=== PATIENT | female | born 1990 | race Caucasian/White ===

== ENCOUNTER 2019-01-08 18:38 | Inpatient (IN) | payer BC ==
[2019-01-08] MEDS ORDERED: OXYTOCIN 10 UNIT/ML 1 ML VIAL IM PRN (19:15)
[2019-01-08] MEDS ORDERED: TERBUTALINE 1 MG/ML VIAL SQ PRN (19:15)
[2019-01-08] MEDS ORDERED: LIDOCAINE 0.5% (PF) 5 MG/ML (50 ML SDV) SQ PRN (19:15)
[2019-01-08] MEDS ORDERED: CARBOPROST TROMETHAMINE 250 MCG/ML 1 ML AMP IM PRN (19:15)
[2019-01-08] MEDS ORDERED: METHYLERGONOVINE 0.2 MG/ML 1 ML AMP IM PRN (19:15)
[2019-01-08] MEDS: LACTATED RINGERS 1,000 ML IV SCH (19:58)
[2019-01-08] MEDS: OXYTOCIN 30 UNITS/500 ML NS 30 UNIT in SALINE 1 500ML.BAG IV SCH (19:59)
[2019-01-08 20:00] VITALS: BMI 29.7
[2019-01-08] MEDS ORDERED: BUTORPHANOL 1 MG/ML 1 ML VIAL IV PRN (20:02)
[2019-01-08 20:33] LABS: Basophils # (A) 0.1 k/uL (0-0.2); Basophils % (A) 1 %; Eosinophils # (A) 0.1 k/uL (0-0.7); Eosinophils % (A) 1 %; HCT 41.7 % (34.0-46.0); HGB 13.8 gm/dL (11.4-16.0); Lymphocytes # (A) 1.9 k/uL (1.0-4.8); Lymphocytes % (A) 19 %; MCH 30.6 pg (25.0-35.0); MCHC 33.1 g/dL (31.0-37.0); MCV 92.3 fL (80.0-100.0); Mean Platelet Volume 8.9; Monocytes # (A) 0.5 k/uL (0-1.0); Monocytes % (A) 5 %; Neutrophils # (A) 7.3 k/uL (1.3-7.7); Neutrophils % (A) 72 %; Platelet Count 174 k/uL (150-450); RBC 4.52 m/uL (3.80-5.40); RDW 14.6 % (11.5-15.5); WBC 10.2 k/uL (3.8-10.6)
[2019-01-08] MEDS ORDERED: fentaNYL (PF) 50 MCG/ML 5 ML AMP ONE (23:45)
[2019-01-08] MEDS ORDERED: SODIUM CHLORIDE 0.9% 100 ML BAG ONE (23:45)
[2019-01-08] MEDS ORDERED: ROPIVACAINE 5MG/ML 20ML VIAL ONE (23:45)
[2019-01-09] MEDS: LACTATED RINGERS 1,000 ML IV SCH ×3 (00:09→21:49)
--- NOTE | 2019-01-09 08:57 | P.HPOB ---
History of Present Illness H&P Date: 01/08/19 Chief Complaint: Rupture of membranes at 37-6/7 weeks' This is a 28-year-old 1 para 0 woman with an estimated due date of 01/23/2019 who presents at 37-6/7 weeks' gestation with the rupture of membranes at approximately the 1715 on 01/08/2019. She notes copious clear fluid. She is having irregular cramping. Her has been essentially unremarkable. She is known blood type O- and did receive Rogaine appropriately. She is rubella immune, group B strep negative, hep Wendy surface antigen negative, gonorrhea and clinic cultures negative, HIV negative. Review of Systems All systems: negative Past Medical History Past Medical History: No Reported History History of Any Multi-Drug Resistant Organisms: None Reported Past Surgical History: No Surgical Hx Reported Past Anesthesia/Blood Transfusion Reactions: No Reported Reaction Past Psychological History: No Psychological Hx Reported Smoking Status: Former smoker Past Alcohol Use History: None Reported Past Drug Use History: None Reported - Past Family History Father Family Medical History: Coronary Artery Disease (CAD) Medications and Allergies Home Medications Medication Instructions Recorded Confirmed Type Pnv,Calcium 72/Iron/Folic Acid 1 each PO DAILY 01/08/19 01/08/19 History [ Plus Tablet] Allergies Allergy/AdvReac Type Severity Reaction Status Date / Time No Known Allergies Allergy Verified 01/08/19 19:35 Exam Vital Signs Temp Pulse Resp BP Pulse Ox 01/08/19 19:15 98.9 F 82 18 130/79 100 01/08/19 19:00 98.9 F 82 18 130/79 100 Intake and Output 01/08/19 01/09/19 01/09/19 22:59 06:59 14:59 Intake Total 700 Balance 700 Intake: IV 400 Lactated Ringers 1,000 ml 400 @ 125 mls/hr IV .Q8H [facility] Rx#:[id number] Oral 300 Other: # Voids 1 Weight 83.915 kg Upon admission from labor and delivery triage her cervix was fingertip dilated, 90% effaced and the vertex was in the -3 station. heart tones are reass uring by external monitoring. Patient was afebrile with normal blood pressures. Rupture of membranes was confirmed. Results Result Diagrams: 01/08/19 19:40 Assessment and Plan (1) Spontaneous rupture of membranes Current Visit: Yes Status: Acute Code(s): HKV6574 - SNOMED Code(s): 973437996 (2) Rh negative, maternal Current Visit: Yes Status: Acute Code(s): O26.899 - OTH RELATED CONDITIONS, UNSPECIFIED TRIMESTER; Z67.91 - UNSPECIFIED BLOOD TYPE, RH NEGATIVE SNOMED Code(s): 287447987 (3) 37 or more weeks gestation of Current Visit: Yes Status: Acute Code(s): WSP6883 - SNOMED Code(s): 04710646 Plan: 28-year-old 1 para 0 woman with spontaneous rupture of membranes not in active labor at 37-6/7 weeks' gestation. She is Rh- and group B strep negative. She will be admitted and undergo Pitocin induction of labor. status is currently reassuring by external monitoring.
--- NOTE | 2019-01-09 08:59 | P.PROBDLV ---
Vaginal Delivery Note - . Vaginal Delivery Note: Findings: Female in the vertex occiput anterior position with Apgars of 7 at 1 minute and 8 at 5 minutes weighing 7 lbs. 3 oz., 3205 g. Intact perineum. Intact, three-vessel cord placenta. EBL 150 mL's. Delivery summary: This is a 28-year-old 1 para 0 woman who presented with spontaneous rupture of fluids at 1715 on 01/08/2019. She was not in active labor. On admission rupture membranes was confirmed however her cervix was not dilated. She therefore underwent Pitocin induction of labor. She eventually received an epidural anesthetic and reached complete cervical dilation by 07 28 on 01/09/2019. She had an approximately 1 hour second stage of labor. heart tones were reassuring throughout the second stage of labor. With she was repositioned, prepped and draped in the modified [place] position. With additional maternal effort the head delivered from the direct occiput anterior position. Arrested 2 did 2 right occiput anterior. The anterior followed by the posterior shoulders were delivered without difficulty. The rest the was delivered onto the field. The nose and mouth were bulb suctioned. Apgars were 7 at 1 minute and 8 at 5 minutes with 2 off for color. The perineum was inspected and there were some abrasions noted along the right labia however no active bleeding was noted. The perineum was intact. An intact, three-vessel cord placenta was delivered after an approximately 8 minute third stage of labor. The uterus was massaged and was noted to be firm. Pitocin was administered. The rest of the vagina was inspected and no further lacerations were noted. EBL was approximately 150 mL's. The uterus was firm and below the level of the umbilicus. All counts were correct. Both mother and infant were doing well post delivery in the room.
[2019-01-09] MEDS ORDERED: diphenhydrAMINE 50 MG/ML 1 ML VIAL IVP PRN ×2 (09:00)
[2019-01-09] MEDS ORDERED: HYDROCORTISONE 2.5% RECTAL CREAM 30 GM TUBE RECTAL PRN (09:00)
[2019-01-09] MEDS ORDERED: diphenhydrAMINE 50 MG CAP PO PRN (09:00)
[2019-01-09] MEDS ORDERED: SIMETHICONE 80 MG CHEWABLE PO PRN (09:00)
[2019-01-09] MEDS ORDERED: ZOLPIDEM 5 MG TAB PO PRN (09:00)
[2019-01-09] MEDS ORDERED: WITCH HAZEL 1 EACH MED..PAD TOPICAL PRN (09:00)
[2019-01-09] MEDS ORDERED: LANOLIN CREAM 5 GM TUBE TOPICAL PRN (09:00)
[2019-01-09] MEDS ORDERED: OXYTOCIN 20 UNITS/1000 ML NS 1,000 ML IV SCH (09:00)
[2019-01-09] MEDS ORDERED: diphenhydrAMINE 25 MG CAP PO PRN (09:00)
[2019-01-09] MEDS ORDERED: BENZOCAINE/MENTHOL SPRAY 1 GM/SPRAY AEROSOL TOPICAL PRN (09:00)
[2019-01-09] MEDS ORDERED: ACETAMINOPHEN TAB 325 MG TAB PO PRN (09:00)
[2019-01-09] MEDS: IBUPROFEN 600 MG TAB PO PRN ×2 (14:43→20:32)
[2019-01-09] MEDS ORDERED: Rhogam IMMUNE GLOBULIN 1,500 UNIT/1 ML IM ONE (16:09)
[2019-01-09] MEDS: OXYTOCIN 30 UNITS/500 ML NS 30 UNIT in SALINE 1 500ML.BAG IV SCH (21:49)
[2019-01-09] MEDS: SENNOSIDES-DOCUSATE SODIUM 1 EACH TAB PO SCH (21:49)
[2019-01-10 06:46] LABS: Basophils # (A) 0.1 k/uL (0-0.2); Basophils % (A) 1 %; Eosinophils # (A) 0.1 k/uL (0-0.7); Eosinophils % (A) 1 %; HCT 34.2 % (34.0-46.0); HGB 11.9 gm/dL (11.4-16.0); Lymphocytes # (A) 2.1 k/uL (1.0-4.8); Lymphocytes % (A) 18 %; MCH 32.1 pg (25.0-35.0); MCHC 34.8 g/dL (31.0-37.0); MCV 92.2 fL (80.0-100.0); Mean Platelet Volume 9.1; Monocytes # (A) 0.5 k/uL (0-1.0); Monocytes % (A) 4 %; Neutrophils # (A) 8.5 k/uL (1.3-7.7); Neutrophils % (A) 74 %; Platelet Count 133 k/uL (150-450); RBC 3.71 m/uL (3.80-5.40); RDW 14.6 % (11.5-15.5); WBC 11.4 k/uL (3.8-10.6)
[2019-01-10] MEDS: IBUPROFEN 600 MG TAB PO PRN ×2 (07:59→19:02)
[2019-01-10] MEDS: SENNOSIDES-DOCUSATE SODIUM 1 EACH TAB PO SCH ×2 (08:00→19:05)
--- NOTE | 2019-01-10 10:48 | P.PNOBGVD ---
Subjective - Subjective Principal diagnosis: day #1 Patient reports: Reports appetite normal, Reports voiding normally, Reports pain well controlled, Reports ambulating normally, Denies nauseated [place]: doing well, other (Monitoring elevated bilirubin) Objective - Latest Vital Signs Latest vital signs: Vital Signs Temp Pulse Resp BP 01/10/19 08:00 98.3 F 73 16 124/69 01/10/19 00:00 98.1 F 77 15 121/62 01/09/19 16:00 97.8 F 74 16 127/77 01/09/19 12:00 97.3 F L 82 16 123/64 01/09/19 10:52 97.7 F 77 16 119/64 Intake and Output 01/09/19 01/10/19 01/10/19 22:59 06:59 14:59 Other: # Voids 1 - Exam Extremities: Present: edema. Absent: tenderness Abdomen: Present: normal appearance, soft. Absent: distention, tenderness Uterus: Present: normal, firm. Absent: tenderness - Labs Labs: Abnormal Lab Results - Last 24 Hours (Table) 01/10/19 Range/Units 06:27 WBC 11.4 H (3.8-10.6) k/uL RBC 3.71 L (3.80-5.40) m/uL Plt Count 133 L (150-450) k/uL Neutrophils # 8.5 H (1.3-7.7) k/uL Assessment and Plan (1) Spontaneous rupture of membranes Current Visit: Yes Status: Acute Code(s): XMO5266 - SNOMED Code(s): 238199088 (2) Rh negative, maternal Current Visit: Yes Status: Acute Code(s): O26.899 - OTH RELATED CONDITIONS, UNSPECIFIED TRIMESTER; Z67.91 - UNSPECIFIED BLOOD TYPE, RH NEGATIVE SNOMED Code(s): 144100347 (3) 37 or more weeks gestation of Current Visit: Yes Status: Acute Code(s): CXV6207 - SNOMED Code(s): 16168286 (4) Normal spontaneous vaginal delivery Current Visit: Yes Status: Acute Code(s): O80 - ENCOUNTER FOR FULL-TERM UNCOMPLICATED DELIVERY SNOMED Code(s): 55825037 Plan: 28-year-old 1 para 1 woman status post normal spontaneous vaginal delivery, day #1. She is recovering very well. is being monitored for elevated bilirubin therefore anticipate discharge home tomorrow.
[2019-01-10] MEDS: LACTATED RINGERS 1,000 ML IV SCH (22:56)
[2019-01-10] MEDS: OXYTOCIN 30 UNITS/500 ML NS 30 UNIT in SALINE 1 500ML.BAG IV SCH (22:57)
[2019-01-11 08:44] VITALS: BP 131/84; PULSE 77; RESP 16; TEMP 97.3
[2019-01-11] MEDS: SENNOSIDES-DOCUSATE SODIUM 1 EACH TAB PO SCH (08:45)
--- NOTE | 2019-01-11 09:03 | P.DS ---
Providers Date of admission: 01/08/19 19:31 Expected date of discharge: 01/11/19 Attending physician: Ruddy Banuelos Primary care physician: Stated None - Discharge Diagnosis(es) (1) 37 or more weeks gestation of Current Visit: Yes Status: Acute (2) Normal spontaneous vaginal delivery Current Visit: Yes Status: Acute Hospital Course: The patient is a 28-year-old 1 para 0 admitted at 37-6/7 weeks by good dating parameters perches admitted with documented spontaneous rupture of membranes for clear fluid. She presented in very early labor with all signs reassuring. Her was uncomplicated though she was Rh- and received RhoGAM at 28 weeks. On labor and delivery, she had Pitocin augmentation started and ultimately had an epidural catheter placed for analgesia. She made progress ultimately to complete and then pushed to a normal spontaneous vaginal delivery of a 7 lbs. 3 oz. baby girl with Apgars of 7 at 1 minute and 8 at 5 minutes. Her course was unremarkable with vital signs remaining stable and her temperature was afebrile throughout. The infant was monitored for bilirubin changes necessitating remaining in the hospital for 48 hours. As result, the patient was deemed discharge for and discharged on day #2. She was d ischarged home to follow-up in the office in 6 weeks' time routinely. Discharge instructions included calling for any significantly increased bleeding or foul- smelling lochia, significantly increased fever abdominal pain, perineal complaints, breast complaints, or anything else that concerned her. She was additionally instructed to have nothing in the vagina for at least 6 weeks time to include intercourse. She understood her instructions and agrees to follow up as noted above. Discharge medications included only continued vitamins as she has opted to breast-feed as well as [id number] analgesic pain medications. Maternal blood type is O- and cord blood was sent for evaluation for the necessity of RhoGAM prior to discharge. Rubella status is immune. Procedures: #1. Pitocin augmentation #2. Epidural analgesia #3. Normal spontaneous vaginal delivery Patient Condition at Discharge: Good Plan - Discharge Summary New Discharge Prescriptions: No Action Pnv,Calcium 72/Iron/Folic Acid [ Plus Tablet] 1 each PO DAILY Discharge Medication List Pnv,Calcium 72/Iron/Folic Acid [ Plus Tablet] 1 each PO DAILY 01/08/19 [History] Follow up Appointment(s)/Referral(s): Ruddy Banuelos MD [STAFF PHYSICIAN] - 6 Weeks Discharge Disposition: HOME SELF-CARE
[2019-01-11] MEDS: IBUPROFEN 600 MG TAB PO PRN (12:59)
== END 2019-01-11 13:55 | disposition home or self-care (01) | DRG 807 ==
LOC: FBPOP 18:38 → 4FBP 19:31
PROVIDERS: ADMIT Obstetrics & Gynecology; ATTEND Obstetrics & Gynecology
PROC: 00HU33Z Insertion of Infusion Device into Spinal Canal, Percutaneous Approach (ICD-10-PCS; 2019-01-08)
PROC: 3E0R3BZ Introduction of Anesthetic Agent into Spinal Canal, Percutaneous Approach (ICD-10-PCS; 2019-01-08)
PROC: 10E0XZZ Delivery of Products of Conception, External Approach (ICD-10-PCS; principal; 2019-01-09)
PROC: 3E0234Z Introduction of Serum, Toxoid and Vaccine into Muscle, Percutaneous Approach (ICD-10-PCS; 2019-01-09)
DX: O26.893 Other specified pregnancy related conditions, third trimester (principal); Z37.0 Single live birth; Z3A.37 37 weeks gestation of pregnancy; Z67.41 Type O blood, Rh negative; Z79.899 Other long term (current) drug therapy; Z87.891 Personal history of nicotine dependence; Z82.49 Family history of ischemic heart disease and other diseases of the circulatory system
CPT/HCPCS: 85025; 85461; 86850; 86870; 86880; 86900; 86901; 88307

== ENCOUNTER → 2019-10-02 | Outpatient (CLI) | payer OTHER | END | disposition home or self-care (01) | LOC: LABWHC1 09:30 | PROVIDERS: ATTEND Obstetrics & Gynecology | DX: O20.0 Threatened abortion (principal) | CPT/HCPCS: 36415; 84702 ==

== ENCOUNTER → 2019-10-04 | Outpatient (CLI) | payer OTHER | END | disposition home or self-care (01) | LOC: LABWHC1 09:32 | PROVIDERS: ATTEND Obstetrics & Gynecology | DX: O20.0 Threatened abortion (principal) | CPT/HCPCS: 36415; 84702 ==

== ENCOUNTER 2020-08-07 11:02 | Inpatient (IN) | payer OTHER ==
[2020-08-09] MEDS ORDERED: OXYTOCIN 10 UNIT/ML 1 ML VIAL IM PRN (06:48)
[2020-08-09] MEDS ORDERED: LIDOCAINE 0.5% (PF) 5 MG/ML (50 ML SDV) SQ PRN (06:48)
[2020-08-09] MEDS ORDERED: TERBUTALINE 1 MG/ML VIAL SQ PRN (06:48)
[2020-08-09] MEDS ORDERED: METHYLERGONOVINE 0.2 MG/ML 1 ML AMP IM PRN (06:48)
[2020-08-09] MEDS ORDERED: CARBOPROST TROMETHAMINE 250 MCG/ML 1 ML AMP IM PRN (06:48)
[2020-08-09] MEDS: LACTATED RINGERS 1,000 ML IV SCH ×2 (06:51→11:30)
[2020-08-09] MEDS ORDERED: OXYTOCIN 30 UNITS/500 ML NS 30 UNIT in SALINE 1 500ML.BAG IV SCH (07:00)
[2020-08-09 07:02] LABS: Basophils # (A) 0.1 k/uL (0-0.2); Basophils % (A) 1 %; Eosinophils # (A) 0.1 k/uL (0-0.7); Eosinophils % (A) 1 %; HCT 42.9 % (34.0-46.0); Lymphocytes # (A) 1.6 k/uL (1.0-4.8); Lymphocytes % (A) 16 %; MCH 32.2 pg (25.0-35.0); MCHC 34.9 g/dL (31.0-37.0); MCV 92.2 fL (80.0-100.0); Mean Platelet Volume 8.9; Monocytes # (A) 0.5 k/uL (0-1.0); Monocytes % (A) 5 %; Neutrophils # (A) 7.7 k/uL (1.3-7.7); Neutrophils % (A) 75 %; Platelet Count 152 k/uL (150-450); RBC 4.65 m/uL (3.80-5.40); RDW 13.4 % (11.5-15.5); WBC 10.2 k/uL (3.8-10.6)
[2020-08-09] MEDS ORDERED: BUTORPHANOL 1 MG/ML 1 ML VIAL IV PRN (08:49)
--- NOTE | 2020-08-09 08:54 | P.HPOB ---
History of Present Illness H&P Date: 08/09/20 Chief Complaint: 40-2/7 weeks, induction The patient is a 30-year-old 3 para 1011 admitted at 40-2/7 weeks as established by last menstrual period and confirmed by an 8 week ultrasound. She is admitted for induction of labor with all signs reassuring. Her has been entirely uncomplicated though she is Rh- and received RhoGAM at 28 weeks. Group B strep status is negative. Obstetrical history: 3 para 1011 with 1 term vaginal delivery and one ea rly miscarriage. EDC of 08/07/2020 was established by last menstrual period and confirmed by 8 week ultrasound. Laboratory workup demonstrates a blood type of O- with a negative antibody screen. Rubella status is immune. The remainder of the laboratory workup was within normal limits. One hour Glucola is normal and group B strep status is negative. Gynecologic history: Unremarkable with no history of any infections to include STDs. Review of Systems Review of systems is confined to history of present illness. Past Medical History Past Medical History: No Reported History History of Any Multi-Drug Resistant Organisms: None Reported Past Surgical History: No Surgical Hx Reported Past Anesthesia/Blood Transfusion Reactions: No Reported Reaction Past Psychological History: No Psychological Hx Reported Smoking Status: Never smoker Past Alcohol Use History: None Reported Past Drug Use History: None Reported - Past Family History Father Family Medical History: Coronary Artery Disease (CAD) Medications and Allergies Home Medications Medication Instructions Recorded Confirmed Type Pnv,Calcium 72/Iron/Folic Acid 1 each PO DAILY 01/08/19 08/09/20 History [ Plus Tablet] Allergies Allergy/AdvReac Type Severity Reaction Status Date / Time No Known Allergies Allergy Verified 08/09/20 06:38 Exam Vital Signs Temp Pulse Resp BP Pulse Ox 08/09/20 06:34 97.4 F L 90 18 159/67 98 Intake and Output 08/08/20 08/09/20 08/09/20 22:59 06:59 14:59 Other: Weight 84.822 kg In general, this is a well-developed, well-nourished white female in no acute distress. Her heart has a regular rhythm and rate without murmur. Her lungs are clear to auscultation blood in all [place]. Her abdomen is gravid, nondistended, has normal active bowel sounds, soft, nontender, and without any palpable masses aside from uterine fundus. Her extremities are without any cyanosis, clubbing, or edema and are nontender to palpation bilaterally. Digital cervical examination demonstrates her sugars to be 2 placentae meters dilated, 50% effaced, with the vertex in presentation at -2 station. Artificial rupture of membranes is carried out demonstrating clear fluid. Results Result Diagrams: 08/09/20 06:50 Assessment and Plan (1) Term Current Visit: Yes Status: Acute Code(s): Z34.90 - ENCNTR FOR SUPRVSN OF NORMAL , UNSP, UNSP TRIMESTER SNOMED Code(s): 05624769 Plan: The patient is admitted for induction of labor. Pitocin has been started and artificial rupture of membranes carried out. She will have close maternal and surveillance and expectant management will be practiced. She is a good candidate for either IV or epidural analgesia, whichever she may choose.
[2020-08-09] MEDS ORDERED: ROPIVACAINE 100 MG, fentaNYL (PF) 200 MCG in SODIUM CHLORIDE 0.9% 76 ML EPIDURAL ONE (11:51)
[2020-08-09] MEDS ORDERED: diphenhydrAMINE 25 MG CAP PO PRN (16:50)
[2020-08-09] MEDS ORDERED: BENZOCAINE/MENTHOL SPRAY 1 GM/SPRAY AEROSOL TOPICAL PRN (16:50)
[2020-08-09] MEDS ORDERED: ZOLPIDEM 5 MG TAB PO PRN (16:50)
[2020-08-09] MEDS ORDERED: SIMETHICONE 80 MG CHEWABLE PO PRN (16:50)
[2020-08-09] MEDS ORDERED: HYDROcodone/APAP 5-325MG 1 EACH TAB PO PRN (16:50)
[2020-08-09] MEDS ORDERED: LANOLIN CREAM 5 GM TUBE TOPICAL PRN (16:50)
[2020-08-09] MEDS ORDERED: diphenhydrAMINE 50 MG/ML 1 ML VIAL IVP PRN ×2 (16:50)
[2020-08-09] MEDS ORDERED: HYDROcodone/APAP 7.5-325MG 1 EACH TAB PO PRN (16:50)
[2020-08-09] MEDS ORDERED: ACETAMINOPHEN TAB 325 MG TAB PO PRN (16:50)
[2020-08-09] MEDS ORDERED: diphenhydrAMINE 50 MG CAP PO PRN (16:50)
[2020-08-09] MEDS ORDERED: HYDROCORTISONE 2.5% RECTAL CREAM 30 GM TUBE RECTAL PRN (16:50)
--- NOTE | 2020-08-09 16:55 | P.PROBDLV ---
Vaginal Delivery Note - . Vaginal Delivery Note: The patient is a 30-year-old 3 para 1011 admitted at 40-2/7 weeks by good dating parameters perches admitted for induction of labor with all signs reassuring. Her has been uncomplicated and group B strep status is negative. She is Rh- and received RhoGAM at 28 weeks. On labor and delivery, she had Pitocin started followed by artificial rupture of membranes for clear fluid. She progressed to the onset of the active phase of labor at which time a n epidural catheter was placed for analgesia. She then progressed steadily through the active phase of labor to complete and pushed over the course of approximately 25-30 minutes to a normal spontaneous vaginal delivery of a viable 9 lbs. 3 oz. baby boy with Apgars of 9 at 1 minute and 9 at 5 minutes delivered in the left occiput anterior position. The placenta was delivered spontaneously, intact, and grossly normal with a grossly normal three-vessel cord inserted approximately 2-37 m from the margin of the placental disc. There was a moderate amount of ongoing vaginal bleeding following delivery which was managed both with Pitocin and a dose of Methergine. There was noted to be a very small second-degree midline perineal laceration which was repaired in standard fashion using 3-0 chromic catgut without difficulty. She additionally had some right labial skin splits which were not repaired as they were not bleeding and more likely to heal if left alone. Estimated blood loss for the entire case was approximately 6-700 mL but is now under excellent control after Methergine. There were no other complications. All sponge, instrument, needle counts were correct. Both mother and infant are resting comfortably in recovery.
[2020-08-09] MEDS ORDERED: OXYTOCIN 20 UNITS/1000 ML NS 1,000 ML IV SCH (17:00)
[2020-08-09] MEDS: IBUPROFEN 600 MG TAB PO PRN (21:06)
[2020-08-09] MEDS: SENNOSIDES-DOCUSATE SODIUM 1 EACH TAB PO SCH (21:07)
[2020-08-09 21:17] VITALS: RESP 16
[2020-08-10] MEDS: SENNOSIDES-DOCUSATE SODIUM 1 EACH TAB PO SCH (07:56)
[2020-08-10] MEDS: IBUPROFEN 600 MG TAB PO PRN ×2 (07:56→16:01)
[2020-08-10 08:12] LABS: Basophils # (A) 0.1 k/uL (0-0.2); Basophils % (A) 0 %; Eosinophils # (A) 0.2 k/uL (0-0.7); Eosinophils % (A) 1 %; HCT 35.5 % (34.0-46.0); HGB 12.3 gm/dL (11.4-16.0); Lymphocytes # (A) 1.8 k/uL (1.0-4.8); Lymphocytes % (A) 14 %; MCH 32.2 pg (25.0-35.0); MCHC 34.7 g/dL (31.0-37.0); Mean Platelet Volume 8.7; Monocytes # (A) 0.7 k/uL (0-1.0); Monocytes % (A) 5 %; Neutrophils # (A) 10.5 k/uL (1.3-7.7); Neutrophils % (A) 78 %; Platelet Count 153 k/uL (150-450); RBC 3.81 m/uL (3.80-5.40); RDW 13.5 % (11.5-15.5); WBC 13.5 k/uL (3.8-10.6)
--- NOTE | 2020-08-10 08:40 | P.DS ---
Providers Date of admission: 08/09/20 06:29 Expected date of discharge: 08/10/20 Attending physician: Ruddy Banuelos Primary care physician: Stated None - Discharge Diagnosis(es) (1) Term Current Visit: Yes Status: Acute (2) Normal spontaneous vaginal delivery Current Visit: Yes Status: Acute Hospital Course: The patient is a 30-year-old 3 para 1011 admitted at 40-2/7 weeks by good dating parameters perches admitted for induction of labor with all signs reassuring. Her was uncomplicated though she is Rh- and received RhoGAM at 28 weeks. Group B strep status is negative. On labor and delivery, she had Pitocin started followed by artificial rupture of membranes. She made progress to the onset of active phase of labor which time an epidural catheter was placed for analgesia. She then progressed throughout the day to complete where after she pushed to a normal spontaneous vaginal delivery of a viable 9 lbs. 3 oz. baby boy with Apgars of 9 at 1 minute and 9 at 5 minutes. She did have a moderate amount of bleeding immediately found delivery secondary to uterine atony which constituted the diagnosis of hemorrhage. Repeat hemoglobin the following morning demonstrated a normal level hemoglobin and the patient was otherwise asymptomatic with no significant ongoing bleeding. She was deemed stable for discharge on day #1 and was discharged home to follow-up in the office in 6 weeks' time routinely. Discharge instructions included calling for any significantly increased bleeding or foul-smelling lochia, significantly increased fever abdominal pain, perineal complaints, breast complaints, or anything also concerned her. She is additionally instructed to have nothing in the vagina for at least 6 weeks time to include intercourse. She understood her instructions and agrees follow up as noted above. Discharge medications included continue vitamins as she has opted to breast-feed. She additionally was to use [id number] analgesic pain medications as needed. Maternal blood type is O- and cord blood was sent for evaluation for the necessity of RhoGAM prior to discharge. Rubella status is immune. Procedures: #1. Pitocin induction #2. Artificial rupture of membranes #3. Epidural analgesia #4. Normal spontaneous vaginal delivery #5. Repair of perineal laceration Patient Condition at Discharge: Stable Plan - Discharge Summary New Discharge Prescriptions: No Action Pnv,Calcium 72/Iron/Folic Acid [ Plus Tablet] 1 each PO DAILY Discharge Medication List Pnv,Calcium 72/Iron/Folic Acid [ Plus Tablet] 1 each PO DAILY 01/08/19 [History] Follow up Appointment(s)/Referral(s): Ruddy Banuelos MD [STAFF PHYSICIAN] - 6 Weeks Discharge Disposition: HOME SELF-CARE
[2020-08-10 16:32] VITALS: BP 110/59; PULSE 70; TEMP 98
== END 2020-08-10 18:20 | disposition home or self-care (01) | DRG 806 ==
LOC: 4FBP 08-09 06:29
PROVIDERS: ADMIT Obstetrics & Gynecology; ATTEND Obstetrics & Gynecology
PROC: 0KQM0ZZ Repair Perineum Muscle, Open Approach (ICD-10-PCS; principal; 2020-08-09)
PROC: 10E0XZZ Delivery of Products of Conception, External Approach (ICD-10-PCS; principal; 2020-08-09)
PROC: 10907ZC Drainage of Amniotic Fluid, Therapeutic from Products of Conception, Via Natural or Artificial Opening (ICD-10-PCS; principal; 2020-08-09)
PROC: 3E0R3NZ Introduction of Analgesics, Hypnotics, Sedatives into Spinal Canal, Percutaneous Approach (ICD-10-PCS; principal; 2020-08-09)
PROC: 00HU33Z Insertion of Infusion Device into Spinal Canal, Percutaneous Approach (ICD-10-PCS; principal; 2020-08-09)
PROC: 3E033VJ Introduction of Other Hormone into Peripheral Vein, Percutaneous Approach (ICD-10-PCS; principal; 2020-08-09)
DX: O70.1 Second degree perineal laceration during delivery (principal); O72.1 Other immediate postpartum hemorrhage; Z37.0 Single live birth; Z3A.40 40 weeks gestation of pregnancy; Z82.49 Family history of ischemic heart disease and other diseases of the circulatory system
CPT/HCPCS: 85025; 86850; 86870; 86880; 86900; 86901